=== PATIENT | female | born 1965 | race Caucasian/White ===

== ENCOUNTER 2018-12-18 05:47 | Emergency (ER) | payer OTHER, MEDICARE ==
[~2018-12-18] VITALS: Ht 160 cm; Wt 86.2 kg
[~2018-12-18 05:47] MED LIST: ALPR1TAB2 PO; BUPR300T4 PO; OXYC10TA PO; OXYC20TA34 PO; PANT40TA77 PO; PARO30TA45 PO; RIVA10TA PO; SIMV40TA3 PO
[2018-12-18 07:52] LABS: BILIRUBIN,URINE NEGATIVE (NEG); CLARITY,URINE CLEAR; COLOR,URINE YELLOW; NITRITE,URINE NEGATIVE (NEG); PH,URINE 5.5; PROTEIN,URINE NEGATIVE (NEG-TRACE); UROBILINOGEN,URINE 0.2 mg/dL (0.2 mg/dL)
[2018-12-18 08:00] LABS: BACTERIA,URINE 0 /HPF (0-FEW); RBC,URINE 0 /HPF (0-2); SQUAMOUS EPITHELIAL CELL,UR OCC /LPF; WBC,URINE OCC /HPF (0-4)
--- NOTE | 2018-12-18 08:46 | RAD ---
EXAM: Abdomen sonogram. HISTORY: Pain. TECHNIQUE: Sonographic imaging of the abdomen was performed. COMPARISON: None. FINDINGS: The exam is limited due to patient body habitus and bowel gas. There is hepatomegaly and hepatic steatosis. No focal hepatic lesion is seen. The gallbladder is surgically absent. The common bile duct, pancreas, aorta and inferior vena cava are obscured. The right kidney is partially obscured but appears to be normal in size and without hydronephrosis. IMPRESSION: 1. Hepatomegaly and hepatic steatosis. 2. Cholecystectomy. 3. Significantly limited exam due to body habitus and bowel gas. The majority of the abdominal visceral and vascular structures are obscured or partially obscured. Electronically signed by: Elizabeth Oliveira MD (12/18/2018 8:43 AM) [facility]
--- NOTE | 2018-12-18 09:19 | PHYS DOC ---
Past Medical History Past Medical History: Anxiety, Depression, Other Additional Past Medical Histor: HIGH CHOLESTEROL, ONE KIDNEY (GENETIC) ,CHRONIC BACK Past Surgical History: Appendectomy, Cholecystectomy Alcohol Use: None Drug Use: None Adult General Chief Complaint Chief Complaint: ABDOMINAL PAIN HPI HPI 53-year-old female presenting the emergency department today with abdominal pain in the right upper quadrant that is sharp shooting nonradiating pain. It is moderate to severe rating it between 8 and 9 out of 10. She has a history of cholelithiasis and choledocholithiasis. She has a history of a cholecystectomy. She has felt mild nausea without any vomiting. She denies fevers or chills. Review of systems is negative for chest pain shortness of breath fevers chills or vomiting. All other review of systems is negative. ED course: 53-year-old female presenting with epigastric abdominal pain. Vitals are unremarkable. Abdomen is mildly tender in the epigastrium. Ultrasound and CT ordered along with blood work and EKG. CBC is unremarkable. Chemistry panel is unremarkable. Liver enzymes are just above the reference range of normal. Bilirubin within normal limits. Not suggestive of an obstructive pattern. CT and ultrasound are unremarkable for acute pathology. We will discharge patient home with oral pain medications and nausea medications and follow-up with her doctor in 1-2 days for repeat abdominal exam and repeat blood work. Current Medications Current Medications Current Medications Medications (Trade) Dose Ordered Sig/Josse Start Time Stop Time Status Last Admin Dose Admin Hydromorphone HCl (Dilaudid) 0.5 mg 1X ONCE 12/18/18 11:15 12/18/18 11:16 DC 12/18/18 10:55 0.5 MG Info (CONTRAST GIVEN -- Rx MONITORING) 1 each PRN DAILY PRN 12/18/18 10:15 12/20/18 10:14 Iohexol (Omnipaque 300 Mg/ml) 75 ml 1X ONCE 12/18/18 10:15 12/18/18 10:16 DC 12/18/18 10:21 75 ML Metoclopramide HCl (Reglan Vial) 10 mg 1X ONCE 12/18/18 11:15 12/18/18 11:16 DC 12/18/18 10:55 10 MG Morphine Sulfate (Morphine Sulfate) 4 mg 1X ONCE 12/18/18 10:00 12/18/18 10:01 DC 12/18/18 09:52 4 MG Ondansetron HCl (Zofran) 4 mg 1X ONCE 12/18/18 10:00 12/18/18 10:01 DC 12/18/18 09:52 4 MG Allergies Allergies Allergies Coded Allergies Type Severity Reaction Last Updated Verified cyclobenzaprine Allergy Severe SWELLING 12/04/14 No NSAIDS (Non-Steroidal Anti-Inflamma Allergy Intermediate 12/04/14 No Physical Exam Physical Exam Constitutional: Well developed, well nourished, no acute distress, non-toxic appearance. [] HENT: Normocephalic, atraumatic, bilateral external ears normal, oropharynx moist, no oral exudates, nose normal. [] Eyes: PERRLA, EOMI, conjunctiva normal, no discharge. [] Neck: Normal range of motion, no tenderness, supple, no stridor. [] Cardiovascular:Heart rate regular rhythm, no murmur [] Lungs & Thorax: Bilateral breath sounds clear to auscultation [] Abdomen: Bowel sounds normal, soft, mild ttp in the epigastrium, old surgical scar present, no masses, no pulsatile masses. [] Skin: Warm, dry, no erythema, no rash. [] Back: No tenderness, no CVA tenderness. [] Extremities: No tenderness, no cyanosis, no clubbing, ROM intact, no edema. [] Neurologic: Alert and oriented X 3, normal motor function, normal sensory function, no focal deficits noted. [] Psychologic: Affect normal, judgement normal, mood normal. [] Current Patient Data Vital Signs Vital Signs Date Time Temp Pulse Resp B/P (MAP) Pulse Ox O2 Delivery O2 Flow Rate FiO2 12/18/18 10:55 16 12/18/18 10:00 88 157/90 (112) 97 Room Air 12/18/18 07:38 97.8 97.8 Lab Values Laboratory Tests Test 12/18/18 06:40 12/18/18 09:10 Urine Collection Type Unknown Urine Color Yellow Urine Clarity Clear Urine pH 5.5 Urine Specific [place] 1.010 Urine Protein Negative mg/dL (NEG-TRACE) Urine Glucose (UA) 500 mg/dL (NEG) Urine Ketones (Stick) Negative mg/dL (NEG) Urine Blood Negative (NEG) Urine Nitrite Negative (NEG) Urine Bilirubin Negative (NEG) Urine Urobilinogen Dipstick 0.2 mg/dL (0.2 mg/dL) Urine Leukocyte Esterase Negative (NEG) Urine RBC 0 /HPF (0-2) Urine WBC Occ /HPF (0-4) Urine Squamous Epithelial Cells Occ /LPF Urine Bacteria 0 /HPF (0-FEW) White Blood Count 8.9 x10^3/uL (4.0-11.0) Red Blood Count 4.45 x10^6/uL (3.50-5.40) Hemoglobin 12.8 g/dL (12.0-15.5) Hematocrit 37.6 % (36.0-47.0) Mean Corpuscular Volume 84 fL (79-100) Mean Corpuscular Hemoglobin 29 pg (25-35) Mean Corpuscular Hemoglobin Concent 34 g/dL (31-37) Red Cell Distribution Width 14.6 % (11.5-14.5) H Platelet Count 249 x10^3/uL (140-400) Neutrophils (%) (Auto) 66 % (31-73) Lymphocytes (%) (Auto) 25 % (24-48) Monocytes (%) (Auto) 7 % (0-9) Eosinophils (%) (Auto) 2 % (0-3) Basophils (%) (Auto) 1 % (0-3) Neutrophils # (Auto) 5.9 x10^3/uL (1.8-7.7) Lymphocytes # (Auto) 2.2 x10^3/uL (1.0-4.8) Monocytes # (Auto) 0.6 x10^3/uL (0.0-1.1) Eosinophils # (Auto) 0.2 x10^3/uL (0.0-0.7) Basophils # (Auto) 0.1 x10^3/uL (0.0-0.2) Sodium Level 139 mmol/L (136-145) Potassium Level 4.4 mmol/L (3.5-5.1) Chloride Level 102 mmol/L (98-107) Carbon Dioxide Level 26 mmol/L (21-32) Anion Gap 11 (6-14) Blood Urea Nitrogen 11 mg/dL (7-20) Creatinine 0.8 mg/dL (0.6-1.0) Estimated GFR (Cockcroft-Gault) 74.7 Glucose Level 185 mg/dL (70-99) H Calcium Level 8.8 mg/dL (8.5-10.1) Total Bilirubin 0.3 mg/dL (0.2-1.0) Direct Bilirubin < 0.1 mg/dL (0.0-0.2) Aspartate Amino Transferase (AST) 46 U/L (15-37) H Alanine Aminotransferase (ALT) 60 U/L (14-59) H Alkaline Phosphatase 116 U/L (46-116) Total Protein 7.3 g/dL (6.4-8.2) Albumin 3.6 g/dL (3.4-5.0) Lipase 219 U/L (73-393) Laboratory Tests 12/18/18 09:10 Laboratory Tests 12/18/18 09:10 EKG EKG [] Radiology/Procedures Radiology/Procedures [] Course & Med Decision Making Course & Med Decision Making Pertinent Labs and Imaging studies reviewed. (See chart for details) [] Dragon Disclaimer Dragon Disclaimer This electronic medical record was generated, in whole or in part, using a voice recognition dictation system. Departure Departure Impression: Primary Impression: Abdominal pain Disposition: 01 HOME, SELF-CARE Condition: STABLE Referrals: NO PCP (PCP) NICOL TIPTON MD Patient Instructions: Abdominal Pain Additional Instructions: Thank you for allowing us to participate in your care today. Return to the emergency department you have any new or worsening symptoms, or if you are concerned for any reason. Return to emergency department if you have any new or concerning symptoms including but not limited to fever, chills, nausea, vomiting, intractable pain, any new rashes, chest pain, shortness of air, uncontrolled bleeding, difficulty breathing, and/or vision loss. Follow up with your primary care physician within 1-2 days for a repeat abdominal exam and blood work. Call your Primary Doctor tomorrow and inform them of your visit today. If you do not have a primary care provider we are happy to provide you with a list of our primary care providers contact information. This condition should be evaluated by your primary care physician and any recommended consulting services for continued management within 2 days after discharge. If at any time, you are having difficulty getting into your primary care doctor or a specialist, return to the emergency department. DONITA ORDOÑEZ MD Dec 18, 2018 09:19
[2018-12-18 09:24] LABS: BASO # 0.1 x10^3/uL (0.0-0.2); BASO % 1 % (0-3); EOS # 0.2 x10^3/uL (0.0-0.7); EOS % 2 % (0-3); HEMATOCRIT 37.6 % (36.0-47.0); HEMOGLOBIN 12.8 g/dL (12.0-15.5); LYMPH # 2.2 x10^3/uL (1.0-4.8); LYMPH % 25 % (24-48); MEAN CORPUSCULAR HEMOGLOBIN 29 pg (25-35); MEAN CORPUSCULAR HGB CONC 34 g/dL (31-37); MEAN CORPUSCULAR VOLUME 84 fL (79-100); MONO # 0.6 x10^3/uL (0.0-1.1); MONO % 7 % (0-9); NEUT # 5.9 x10^3/uL (1.8-7.7); NEUT % 66 % (31-73); PLATELET COUNT 249 x10^3/uL (140-400); RED BLOOD COUNT 4.45 x10^6/uL (3.50-5.40); RED CELL DISTRIBUTION WIDTH 14.6 % (11.5-14.5); WHITE BLOOD COUNT 8.9 x10^3/uL (4.0-11.0)
[2018-12-18 10:00] VITALS: BP 157/90
[2018-12-18] MEDS ORDERED: ONDANSETRON PF 4 MG/2 ML VIAL. IV ONE (10:00)
[2018-12-18] MEDS ORDERED: MORPHINE SULFATE 4 MG/ML VIAL. IV ONE (10:00)
[2018-12-18 10:06] LABS: ANION GAP 11 (6-14); BLOOD UREA NITROGEN 11 mg/dL (7-20); CALCIUM 8.8 mg/dL (8.5-10.1); CARBON DIOXIDE 26 mmol/L (21-32); CHLORIDE 102 mmol/L (98-107); CREATININE 0.8 mg/dL (0.6-1.0); GFR 74.7; GLUCOSE 185 mg/dL (70-99); POTASSIUM 4.4 mmol/L (3.5-5.1); SODIUM 139 mmol/L (136-145)
[2018-12-18 10:10] LABS: ALBUMIN 3.6 g/dL (3.4-5.0); ALK PHOS 116 U/L (46-116); ALT (SGPT) 60 U/L (14-59); AST (SGOT) 46 U/L (15-37); DIRECT BILIRUBIN < 0.1 mg/dL (0.0-0.2); LIPASE 219 U/L (73-393); TOTAL BILIRUBIN 0.3 mg/dL (0.2-1.0); TOTAL PROTEIN 7.3 g/dL (6.4-8.2)
[2018-12-18] MEDS ORDERED: IOHEXOL 300 MG/ML 100ML VIAL. IV ONE (10:15)
[2018-12-18] MEDS ORDERED: CONTRAST GIVEN. MC PRN (10:15)
--- NOTE | 2018-12-18 10:54 | RAD ---
CT ABD PELV W/ IV CONTRST ONLY History: Abdominal pain. Technique: After the administration of intravenous contrast, CT imaging was performed of the abdomen and pelvis. Multiplanar images are reviewed. Contrast: 75 mL Omnipaque 300 IV contrast. Exposure: One or more of the following individualized dose reduction techniques were utilized for this examination: 1. Automated exposure control 2. Adjustment of the mA and/or kV according to patient size 3. Use of iterative reconstruction technique. Comparison: July 12, 2018 Findings: Lower chest: Tiny right lower lobe posterior pleural nodularity, unchanged. Abdomen and pelvis: Hepatomegaly with steatosis. Mild splenomegaly. Prior cholecystectomy. Common bile duct measures 1.2 cm, unchanged. Patent portal vein. The pancreas is unremarkable. The left kidney is absent. Small peripherally calcified hypodensity within the left renal fossa, unchanged. Abnormal morphology of the left adrenal gland, unchanged. Unremarkable right adrenal gland. A normal appearance of the compensatory hypertrophy right kidney. No hydronephrosis. No renal calculus. Mild colonic diverticulosis. Appendix not well identified. No inflammatory changes to suggest acute appendicitis. No evidence of bowel obstruction. No pathologic lymphadenopathy. No ascites. Uterus positioned within the right aspect of the pelvis, unchanged. Otherwise, unremarkable pelvic contents. Mild atheromatous calcifications throughout the nonaneurysmal abdominal aorta and branch vessels. Bones: Leftward curvature of the lumbar spine. Left L3 hemivertebra. Congenital fusion L2-L4. Posterior decompression L4. Intrathecal catheter noted. Multilevel lumbar spondylosis. No pathologic osseous lesions. Impression: 1. Mild common bile duct dilatation status post cholecystectomy, unchanged. 2. Mild hepatosplenomegaly with hepatic steatosis. 3. Absent left kidney. 4. Arterial atheromatous calcifications advanced for age. Electronically signed by: Karlos Valladares DO (12/18/2018 10:51 AM) [facility]
[2018-12-18] MEDS ORDERED: HYDROmorphone 2 MG/ML VIAL IV ONE (11:15)
[2018-12-18] MEDS ORDERED: METOCLOPRAMIDE HCL 10 MG/2 ML VIAL. IV ONE (11:15)
--- NOTE | 2018-12-18 11:33 | EKG ---
[facility] [address] [place] [address] Test Date: 2018-12-18 Test Time: 06:36:54 Pat Name: RAÚL LANDIS Department: Room: Gender: F Lan Specialist: : 1965 Requested By: DONITA ORDOÑEZ Order Number: [id number] Reading MD: Measurements Intervals [place] Rate: 92 P: IA: QRS: 48 QRSD: 80 T: 57 QT: 362 QTc: 453 Interpretive Statements IRREGULAR RHYTHM, NO P-WAVE FOUND OTHERWISE NORMAL ECG RI6.01 Unconfirmed report No previous ECG available for comparison
== END 2018-12-18 12:32 | disposition home or self-care (01) ==
LOC: ER 05:47
DX: R10.13 Epigastric pain (principal); R10.11 Right upper quadrant pain; F41.9 Anxiety disorder, unspecified; F32.9 Major depressive disorder, single episode, unspecified; E78.00 Pure hypercholesterolemia, unspecified; G89.29 Other chronic pain; Z90.89 Acquired absence of other organs; Z90.49 Acquired absence of other specified parts of digestive tract
CPT/HCPCS: 36415; 74177; 76705; 80048; 80076; 81001; 83690; 85025; 93005; 96374; 96375; 99285; J1170; J2270; J2405; J2765; Q9967

== ENCOUNTER 2019-01-07 01:07 | Emergency (ER) | payer OTHER, MEDICARE ==
[~2019-01-07] VITALS: Ht 160 cm; Wt 86.2 kg
[2019-01-07 01:49] LABS: BASO % 0 % (0-3); EOS # 0.1 x10^3/uL (0.0-0.7); EOS % 1 % (0-3); HEMATOCRIT 39.3 % (36.0-47.0); HEMOGLOBIN 13.5 g/dL (12.0-15.5); LYMPH # 1.9 x10^3/uL (1.0-4.8); LYMPH % 25 % (24-48); MEAN CORPUSCULAR HEMOGLOBIN 29 pg (25-35); MEAN CORPUSCULAR HGB CONC 34 g/dL (31-37); MEAN CORPUSCULAR VOLUME 85 fL (79-100); MONO # 0.5 x10^3/uL (0.0-1.1); MONO % 7 % (0-9); NEUT # 4.9 x10^3/uL (1.8-7.7); NEUT % 66 % (31-73); PLATELET COUNT 233 x10^3/uL (140-400); RED BLOOD COUNT 4.65 x10^6/uL (3.50-5.40); RED CELL DISTRIBUTION WIDTH 14.5 % (11.5-14.5); WHITE BLOOD COUNT 7.5 x10^3/uL (4.0-11.0)
[2019-01-07] MEDS ORDERED: ONDANSETRON PF 4 MG/2 ML VIAL. IV ONE (02:00)
[2019-01-07] MEDS ORDERED: fentaNYL PF VIAL 100 MCG/2 ML VIAL IV ONE (02:00)
[2019-01-07] MEDS ORDERED: IV NORMAL SALINE 1000ML BAG 1,000 ML IV ONE (02:00)
[2019-01-07 02:15] LABS: BILIRUBIN,URINE NEGATIVE (NEG); CLARITY,URINE CLEAR; COLOR,URINE YELLOW; NITRITE,URINE NEGATIVE (NEG); PH,URINE 5.5; PROTEIN,URINE NEGATIVE (NEG-TRACE); UROBILINOGEN,URINE 0.2 mg/dL (0.2 mg/dL)
[2019-01-07] MEDS ORDERED: IOHEXOL 300 MG/ML 100ML VIAL. IV ONE (02:15)
[2019-01-07 02:24] LABS: CALCIUM 9.2 mg/dL (8.5-10.1); CREATININE 1.4 mg/dL (0.6-1.0); GFR 39.2; POTASSIUM 3.6 mmol/L (3.5-5.1)
[2019-01-07 02:30] LABS: ALBUMIN/GLOBULIN RATIO 1.1 (1.0-1.7); TOTAL BILIRUBIN 0.3 mg/dL (0.2-1.0); TOTAL PROTEIN 7.5 g/dL (6.4-8.2)
[2019-01-07 02:32] LABS: BACTERIA,URINE FEW /HPF (0-FEW); RBC,URINE OCC /HPF (0-2); SQUAMOUS EPITHELIAL CELL,UR FEW /LPF; TRICHOMONAS,URINE PRESENT
--- NOTE | 2019-01-07 03:17 | RAD ---
CT abdomen and pelvis without contrast: Reason for examination: Abdominal pain. Comparison is made to previous study dated 12/18/2018. Helical images were obtained through the abdomen and pelvis with no intravenous or oral contrast administered. Reconstruction was performed in sagittal and coronal planes. Exposure: One or more of the following individualized dose reduction techniques were utilized for this examination: 1. Automated exposure control 2. Adjustment of the mA and/or kV according to patient size 3. Use of iterative reconstruction technique. The lung bases are clear. The heart size is normal with no pericardial effusion. The liver appears to be enlarged at 23 cm and shows some fatty infiltration but no focal lesions. No abnormality seen at the spleen, adrenal glands or pancreas. The gallbladder is surgically absent. The abdominal aorta and inferior vena cava show no acute abnormalities. The appendix is not identified. There are a few diverticuli but no evidence of diverticulitis. The small intestinal tract shows no abnormal dilatation or wall thickening and no evidence of obstruction. No abnormality seen at the stomach. The left kidney is absent. A peripherally calcified nodule remains present in the left renal fossa. No adenopathy is seen. No abnormality seen at the bladder, uterus or ovaries. No adnexal masses are seen. No free fluid or free air seen in the abdomen or pelvis. Again noted is congenital fusion between the L2 and L4 vertebral bodies with a left hemivertebra at the L3 level. Scoliosis with convex to the to the left is again noted. No acute bony abnormalities are seen. Intrathecal catheter remains present. Pump device is present posteriorly on the left. IMPRESSION: Hepatomegaly with fatty infiltration. Absent left kidney. 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 No acute abnormality seen in the abdomen or pelvis. Electronically signed by: Yamilet Nicole MD (01/07/2019 3:14 AM) [facility]
--- NOTE | 2019-01-07 03:24 | PHYS DOC ---
Past Medical History Past Medical History: Anxiety, Depression, Diabetes-Type II, Gallstones, Other Additional Past Medical Histor: HIGH CHOLESTEROL, ONE KIDNEY (GENETIC) ,CHRONIC BACK Past Surgical History: Appendectomy, Cholecystectomy Additional Past Surgical Histo: RIGHT KNEE, SHOULDER Alcohol Use: None Drug Use: None Adult General Chief Complaint Chief Complaint: ABDOMINAL PAIN HPI HPI Patient is a 53-year-old female with chronic pain issues who presents with upper abdominal pain that she describes is related to gallstones in her biliary tract. She also has some pain in her suprapubic region. Patient has a fentanyl pain pump in place for some chronic pain. She states she's had nausea. She denies any fever chills or sweats. She denies any melena or hematemesis. She cannot state which pain, epigastric or lower abdomen is worse at this time. She describes both areas as being severe. No pain that she is having today radiates anywhere.[] Review of Systems Review of Systems Constitutional: Denies fever or chills [] Eyes: Denies change in visual acuity, redness, or eye pain [] HENT: Denies nasal congestion or sore throat [] Respiratory: Denies cough or shortness of breath [] Cardiovascular: No additional information not addressed in HPI [] GI: Per history of present illness[] : Denies dysuria or hematuria [] Musculoskeletal: Denies back pain or joint pain [] Integument: Denies rash or skin lesions [] Neurologic: Denies headache, focal weakness or sensory changes [] Endocrine: Denies polyuria or polydipsia [] All other systems were reviewed and found to be within normal limits, except as documented in this note. Current Medications Current Medications Current Medications Medications (Trade) Dose Ordered Sig/[facility] Start Time Stop Time Status Last Admin Dose Admin Fentanyl Citrate (Fentanyl 2ml Vial) 50 mcg 1X ONCE 01/07/19 02:00 01/07/19 02:32 DC 01/07/19 02:37 50 MCG Iohexol (Omnipaque 300 Mg/ml) 75 ml 1X ONCE 01/07/19 02:15 01/07/19 02:16 UNV Ondansetron HCl (Zofran Odt) 4 mg 1X ONCE 01/07/19 03:30 01/07/19 03:31 UNV Ondansetron HCl (Zofran) 4 mg 1X ONCE 01/07/19 02:00 01/07/19 02:32 DC 01/07/19 02:37 4 MG Sodium Chloride 1,000 ml @ 1,000 mls/hr 1X ONCE 01/07/19 02:00 01/07/19 02:59 DC 01/07/19 02:50 1,000 MLS/HR Allergies Allergies Allergies Coded Allergies Type Severity Reaction Last Updated Verified cyclobenzaprine Allergy Severe SWELLING 12/04/14 No NSAIDS (Non-Steroidal Anti-Inflamma Allergy Intermediate 12/04/14 No ketamine Allergy Intermediate 01/07/19 Yes metoclopramide Allergy Intermediate FACIAL TWITCHING 01/07/19 Yes Physical Exam Physical Exam Constitutional: Well developed, well nourished, mild distress, non-toxic appearance. [] HENT: Normocephalic, atraumatic, bilateral external ears normal, oropharynx moist, no oral exudates, nose normal. [] Eyes: PERRLA, EOMI, conjunctiva normal, no discharge. [] Neck: Normal range of motion, no tenderness, supple, no stridor. [] Cardiovascular:Heart rate regular rhythm, no murmur [] Lungs & Thorax: Bilateral breath sounds clear to auscultation [] Abdomen: Mild epigastric tenderness to palp no rebound or guarding negative Chaudhary's sign lower abdomen is nontender. [] Skin: Warm, dry, no erythema, no rash. [] Back: No tenderness, no CVA tenderness. [] Extremities: No tenderness, no cyanosis, no clubbing, ROM intact, no edema. [] Neurologic: Alert and oriented X 3, normal motor function, normal sensory function, no focal deficits noted. [] Psychologic: Anxious. [] Current Patient Data Vital Signs Vital Signs Date Time Temp Pulse Resp B/P (MAP) Pulse Ox O2 Delivery O2 Flow Rate FiO2 01/07/19 02:37 22 99 Room Air 01/07/19 01:18 97.9 98 135/89 (104) 97.9 Lab Values Laboratory Tests Test 01/07/19 01:45 01/07/19 01:55 01/07/19 02:05 White Blood Count 7.5 x10^3/uL (4.0-11.0) Red Blood Count 4.65 x10^6/uL (3.50-5.40) Hemoglobin 13.5 g/dL (12.0-15.5) Hematocrit 39.3 % (36.0-47.0) Mean Corpuscular Volume 85 fL (79-100) Mean Corpuscular Hemoglobin 29 pg (25-35) Mean Corpuscular Hemoglobin Concent 34 g/dL (31-37) Red Cell Distribution Width 14.5 % (11.5-14.5) Platelet Count 233 x10^3/uL (140-400) Neutrophils (%) (Auto) 66 % (31-73) Lymphocytes (%) (Auto) 25 % (24-48) Monocytes (%) (Auto) 7 % (0-9) Eosinophils (%) (Auto) 1 % (0-3) Basophils (%) (Auto) 0 % (0-3) Neutrophils # (Auto) 4.9 x10^3/uL (1.8-7.7) Lymphocytes # (Auto) 1.9 x10^3/uL (1.0-4.8) Monocytes # (Auto) 0.5 x10^3/uL (0.0-1.1) Eosinophils # (Auto) 0.1 x10^3/uL (0.0-0.7) Basophils # (Auto) 0.0 x10^3/uL (0.0-0.2) Urine Collection Type Unknown Urine Color Yellow Urine Clarity Clear Urine pH 5.5 Urine Specific [place] 1.020 Urine Protein Negative mg/dL (NEG-TRACE) Urine Glucose (UA) >=1000 mg/dL (NEG) Urine Ketones (Stick) Negative mg/dL (NEG) Urine Blood Negative (NEG) Urine Nitrite Negative (NEG) Urine Bilirubin Negative (NEG) Urine Urobilinogen Dipstick 0.2 mg/dL (0.2 mg/dL) Urine Leukocyte Esterase Negative (NEG) Urine RBC Occ /HPF (0-2) Urine WBC 5-10 /HPF (0-4) Urine Squamous Epithelial Cells Few /LPF Urine Bacteria Few /HPF (0-FEW) Urine Trichomonas Present Sodium Level 140 mmol/L (136-145) Potassium Level 3.6 mmol/L (3.5-5.1) Chloride Level 103 mmol/L (98-107) Carbon Dioxide Level 26 mmol/L (21-32) Anion Gap 11 (6-14) Blood Urea Nitrogen 9 mg/dL (7-20) Creatinine 1.4 mg/dL (0.6-1.0) H Estimated GFR (Cockcroft-Gault) 39.2 BUN/Creatinine Ratio 6 (6-20) Glucose Level 182 mg/dL (70-99) H Calcium Level 9.2 mg/dL (8.5-10.1) Total Bilirubin 0.3 mg/dL (0.2-1.0) Aspartate Amino Transferase (AST) 53 U/L (15-37) H Alanine Aminotransferase (ALT) 60 U/L (14-59) H Alkaline Phosphatase 118 U/L (46-116) H Total Protein 7.5 g/dL (6.4-8.2) Albumin 4.0 g/dL (3.4-5.0) Albumin/Globulin Ratio 1.1 (1.0-1.7) Lipase 266 U/L (73-393) Laboratory Tests 01/07/19 01:45 Laboratory Tests 01/07/19 02:05 EKG EKG [] Radiology/Procedures Radiology/Procedures [] Impressions: CT abdomen and pelvis without contrast: Reason for examination: Abdominal pain. Comparison is made to previous study dated 12/18/2018. Helical images were obtained through the abdomen and pelvis with no intravenous or oral contrast administered. Reconstruction was performed in sagittal and coronal planes. Exposure: One or more of the following individualized dose reduction techniques were utilized for this examination: 1. Automated exposure control 2. Adjustment of the mA and/or kV according to patient size 3. Use of iterative reconstruction technique. The lung bases are clear. The heart size is normal with no pericardial effusion. The liver appears to be enlarged at 23 cm and shows some fatty infiltration but no focal lesions. No abnormality seen at the spleen, adrenal glands or pancreas. The gallbladder is surgically absent. The abdominal aorta and inferior vena cava show no acute abnormalities. The appendix is not identified. There are a few diverticuli but no evidence of diverticulitis. The small intestinal tract shows no abnormal dilatation or wall thickening and no evidence of obstruction. No abnormality seen at the stomach. The left kidney is absent. A peripherally calcified nodule remains present in the left renal fossa. No adenopathy is seen. No abnormality seen at the bladder, uterus or ovaries. No adnexal masses are seen. No free fluid or free air seen in the abdomen or pelvis. Again noted is congenital fusion between the L2 and L4 vertebral bodies with a left hemivertebra at the L3 level. Scoliosis with convex to the to the left is again noted. No acute bony abnormalities are seen. Intrathecal catheter remains present. Pump device is present posteriorly on the left. IMPRESSION: Hepatomegaly with fatty infiltration. Absent left kidney. 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 No acute abnormality seen in the abdomen or pelvis. Course & Med Decision Making Course & Med Decision Making Pertinent Labs and Imaging studies reviewed. (See chart for details) [ED course: Evaluation reveals a 53-year-old female whose complaints seem more serious than her vital signs and physical exam would indicate. I suspect there is some drug-seeking behavior going on. Patient receives a total of 1.8 to micrograms per hour of fentanyl through her pain pump and she is informed me that no amount of fentanyl will help her current pain. During the course of her stay her nausea did increase and she asked for nausea medicine. I did give her 50 �g of fentanyl and a total of 8 mg of Zofran.] Dragon Disclaimer Dragon Disclaimer This electronic medical record was generated, in whole or in part, using a voice recognition dictation system. Departure Departure Impression: Primary Impression: Abdominal pain Disposition: HOME, SELF-CARE Condition: STABLE Referrals: ELIZA ESCOBAR DO (PCP) Patient Instructions: Abdominal Pain Additional Instructions: He need to follow with your primary care physician this week for recheck. Return to the emergency department with any new or concerning symptoms Scripts Ondansetron (ONDANSETRON ODT) 4 Mg Tab.rapdis 1 TAB PO PRN Q6-8HRS for VOMITING, #16 TAB Prov: KASHMIR HAWKINS DO 01/07/19 Problem Qualifiers Primary Impression: Abdominal pain Abdominal location: generalized Qualified Codes: R10.84 - Generalized abdominal pain KASHMIR HAWKINS DO Jan 07, 2019 03:24
[2019-01-07] MEDS ORDERED: ONDA4TAB12 PO (03:27)
[2019-01-07] MEDS ORDERED: ONDANSETRON ODT 4 MG TAB.RAPDIS. PO ONE (03:30)
[2019-01-07 03:36] VITALS: BP 158/94
== END 2019-01-07 03:37 | disposition home or self-care (01) ==
LOC: ER 01:07
DX: R10.13 Epigastric pain (principal); R10.10 Upper abdominal pain, unspecified; G89.29 Other chronic pain; F41.9 Anxiety disorder, unspecified; F32.9 Major depressive disorder, single episode, unspecified; E11.9 Type 2 diabetes mellitus without complications; E78.00 Pure hypercholesterolemia, unspecified; Z90.89 Acquired absence of other organs; Z90.49 Acquired absence of other specified parts of digestive tract; Z88.8 Allergy status to other drugs, medicaments and biological substances; Z88.4 Allergy status to anesthetic agent
CPT/HCPCS: 36415; 74176; 80053; 81001; 83690; 85025; 87086; 96374; 96375; 99285; J2405; J3010; J7030; Q0162